=== PATIENT | male | born 1965 | race Two or more races ===

== ENCOUNTER 2017-09-18 23:44 | Emergency (ER) | payer SELFPAY ==
[2017-09-18 23:49] VITALS: BP 164/79; BMI 35.5
--- NOTE | 2017-09-19 00:37 | DR.GENAD ---
HPI - PCP Primary Care Physician: NFD - HPI Comment HPI Comment: EXPOSE TO PATIENT WITH FLU THIS WEEK. CHEST PAIN WELL AND SORE THROAT. - Complaint/Symptoms Chief Complaint Doctors Comments: COUGH, COLD, CONGESTION, FEVER AND BODY ACHES TIMES ONE DAY. Chief Complaint:: FLU SYMPTOMS Self Treatment fo Chief Complaint: ALEVE - Nurses notes reviewed Nurses Notes Review: Yes - Source History Provided: Patient - Mode of Arrival Mode of Arrival: Ambulatory - Timing Onset of Chief Complaint: 09/17/17 Came on: Suddenly - Duration Duration: Constant Duration: Days - Severity Severity: Moderate PMH - PMH Past Medical History: No Past Surgical History: Yes Surgical History: Cholecystectomy - Family History History of Family Medical Conditions: No (UNKNOWN) - Social History Does patient currently use any type of tobacco product: No Have you used tobacco products in the last 12 months: No Type of Tobacco Use: None Does any household member use tobacco: No Alcohol Use: Rarely Do you use any recreational Drugs:: No Lives With: Family Lives Where: Home - infectious screening In the last 2 months have you had wt loss of >10#?: NO Have you had fever, night sweats or hemotysis?: No Have you traveled outside the country in the last 6 months?: No Isolation: Standard ROS - Review of Systems Constitutional: Chills, Fever, Malaise, Weakness, Fatigue Eyes: No Symptoms Reported. negative: Eye Pain, Discharge ENTM: Nose Discharge, Nose Congestion, Throat Pain. negative: Ear Pain Respiratoy: Productive Cough. negative: Short of Breath, Stridor, Wheezing Cardiovascular: No Symptoms Reported Gastrointestinal/Abdominal: No Symptoms Reported Genitourinary: No Symptoms Reported Neurological: Headache, Weakness, Dizziness Musculoskeletal: Back Pain, Muscle Pain Integumentary: No Symptoms Reported Hematologic/Lymphatic: No Symptoms Reported Endocrine: No Symptoms Reported All Other Systems: Reviewed and Negative PE - Vital Signs Vitals: Temperature 101.4 F Pulse Rate 92 Respiratory Rate 16 Blood Pressure 164/79 O2 Sat by Pulse Oximetry 95 - General Limitations: No Limitations General Appearance: Alert - Head Head Exam: Normal Inspection - Eyes Eye exam: Normal Appearance - ENT ENT Exam: Normal External Ear Exam. negative: Normal Oropharynx, TM's Normal Bilaterally External Ear Exam: Normal External Inspection TM/Canal Exam: Bilateral Bulging Nose Exam: Sinus Tenderness Mouth Exam: Normal Inspection Throat Exam: Tonsillar Erythema, Tonsillomegaly. negative: Tonsillar Exudate - Neck Neck Exam: Trachea Midline. negative: Tenderness, Meningismus, Lymphadenopathy - Chest Chest Inspection: Symmetric Chest Wall Rise - Respiratory Respiratory Exam: Normal Lung Sounds Bilat Respiratory Exam: Bilateral Clear to Auscultation - Cardiovascular Cardiovascular Exam: Regular Rate, Normal Rhythm, Normal Heart Sounds - Abdominal Exam Abdominal Exam: Normal Bowel Sounds, Soft. negative: Tenderness - Extremities Extremities Exam: Normal Inspection - Back Back Exam: Normal Inspection - Neurologic Neurological Exam: Alert, Oriented X3 - Psychiatric Psychiatric Exam: Normal Affect, Normal Mood - Skin Skin Exam: Normal Color MDM - Additional Information Additional Information Obtained From: Family - Differential Diagnosis Differential Diagnosis: INFLUENZA, SINUSITIS, PHARYNGITIS Course - Treatment Treatment: SEE ORDERS. - Education/Counseling Education/Counseling: Patient, Education Educated On: Diagnosis, Needs for Follow Up ROR - Labs Reviewed Laboratory Results Reviewed?: Yes Laboratory: Influenza Type A (PCR) Positive (NEGATIVE) A 09/19/17 00:52 Influenza Type B (PCR) Negative (NEGATIVE) 09/19/17 00:52 Streptococcus Screen Positive (NEGATIVE) A 09/19/17 00:52 - Diagnosis Discharge Problem: Strep throat, Influenza Sinusitis Qualifiers: Sinusitis location: unspecified location Chronicity: acute Recurrence: not specified as recurrent Qualified Code(s): J01.90 - Acute sinusitis, unspecified - Discharge Plan Disposition: 01 HOME, SELF-CARE Condition: Stable Prescriptions: Acetaminophen with Codeine [Tylenol/Codeine #3 300-30 mg] 1 tab PO Q6H PRN #15 tab PRN Reason: Pain Amoxicillin [Amoxil 875 mg] 875 mg PO Q12H #20 tab Oseltamivir Phosphate [Tamiflu] 75 mg PO BID #10 cap - Follow ups/Referrals Follow ups/Referrals: NFD,None [Primary Care Provider] - 3 days - Instructions Instructions: Influenza, Adult, [id number], Strep Throat, [id number] Additional Instructions: RETURN TO ED IF WORSE.
[2017-09-19] MEDS ORDERED: TORADOL 60 MG VIAL IM ONE (01:08)
[2017-09-19] MEDS ORDERED: TORADOL 60 MG VIAL ONE (01:19)
[2017-09-19] MEDS ORDERED: TYLENOL #3 TAB (W/CODEINE) PO ONE ×2 (02:14→02:23)
[2017-09-19] MEDS ORDERED: AMOXIL CAP 500 MG PO ONE ×2 (02:14→02:24)
[2017-09-19] MEDS ORDERED: MOTRIN TAB 800 MG PO ONE ×2 (02:15→02:23)
== END 2017-09-19 02:55 | disposition home or self-care (01) ==
LOC: ER 23:44
DX: J11.1 Influenza due to unidentified influenza virus with other respiratory manifestations (principal); J02.0 Streptococcal pharyngitis; J01.80 Other acute sinusitis
CPT/HCPCS: 87502; 87880; 96372; 99282; 99283; J1885